=== PATIENT | female | born 1995 | race Caucasian/White ===

== ENCOUNTER 2018-11-15 05:22 | Emergency (ER) | payer MEDICAID ==
[~2018-11-15] VITALS: Ht 162.6 cm; Wt 59.0 kg
[~2018-11-15 05:22] MED LIST: FERR-15 PO; FOLI1TAB19 PO; PREN-385 PO
[2018-11-15 05:26] VITALS: BP 132/81
--- NOTE | 2018-11-15 05:26 | NUR ---
23 Y/O FEMALE PRESENTS TO ED WITH C/O BILAT LOWER ABD PAIN WITH VAGINAL BLEEDING X4 HRS. STATES ABD PAIN AND VAGINAL BLEEDING BEGAN AFTER SEXUAL INTERCOURSE WITH HER BOYFRIEND. ALSO STATES LARGE AMOUNTS OF THICK RED TISSUE IS COMING FROM VAGINA. VSS UPON ED EVALUATION. POSITIONED IN BED FOR COMFORT. X1 SIDE RAIL UP. BOYFRIEND AT BEDSIDE. ER MD AWARE. CONTINUE TO MONITOR.
--- NOTE | 2018-11-15 05:26 | NUR ---
TO BED # 07 AMBULATORY
--- NOTE | 2018-11-15 05:42 | NUR ---
Dr. Luna evaluating patient at bedside.
[2018-11-15 06:20] VITALS: BP 126/73
--- NOTE | 2018-11-15 06:20 | NUR ---
DISCHARGE PAPERS GIVEN TO PT. 07/26 PAIN BUT TOLLERABLE. DISCHARGED WITH VSS. RX OF MOTRIN GIVEN. SIDE EFFECTS EXPLAINED. INSTRUCTED TO F/U WITH PCP AND WHEN TO RETURN TO ER. PT VERBALLIZED UNDERSTANDING OF DC INSTRUCTIONS. ALL QUESTIONS ANSWERED.
== END 2018-11-15 06:20 | disposition home or self-care (01) ==
LOC: MED 05:22
DX: N93.9 Abnormal uterine and vaginal bleeding, unspecified (principal); E11.9 Type 2 diabetes mellitus without complications; Z79.899 Other long term (current) drug therapy
CPT/HCPCS: 81002; 81025; 99283

== ENCOUNTER 2022-04-10 07:31 | Inpatient (IN) | payer OTHER ==
[~2022-04-10] VITALS: Ht 162.6 cm; Wt 61.5 kg
[~2022-04-10 07:31] MED LIST changes: +CEPH-588 PO; -FERR-15 PO; -FOLI1TAB19 PO; +HUM SUBQ; -PREN-385 PO
[2022-04-10 07:42] VITALS: BP 134/90
[2022-04-10] MEDS ORDERED: NACL 0.9% 1,000 ML IV SCH (07:55)
--- NOTE | 2022-04-10 08:20 | NUR ---
Covid and flu swabs collected and walked to lab.
--- NOTE | 2022-04-10 08:45 | NUR ---
26y/o presents to ED with c/o SOB, N/V today. Pt reports dizziness "like I'm swaying side to side," weakness since this morning, intermittent nausea, one episode of vomiting upon arrival. Pt presents tachypneic with use of accessory muscles,respirations in triage 28, unsteady gait, assisted with ambulation, HR in triage 139. Pt denies pain, fevers, chills, diarrhea at this time. Pt placed in gown, on bedside monitor, bed placed in lowest position, side rails x2.
--- NOTE | 2022-04-10 09:35 | NUR ---
Dr. Garnica at bedside for ultrasound guided IV.
--- NOTE | 2022-04-10 10:15 | NUR ---
Ambulated pt with assistance to restroom.
[2022-04-10 11:02] LABS: BASOPHILS # (AUTO) 0.1 K/uL (0.00-0.22); BASOPHILS % (AUTO) 0.6 % (0.0-2.0); EOSINOPHILS % (AUTO) 0.1 % (0.0-4.0); HEMATOCRIT 43.6 % (36-48); HEMOGLOBIN 14.1 g/dL (12.0-16.0); LYMPHOCYTES # (AUTO) 1.3 K/uL (2.5-16.5); LYMPHOCYTES % (AUTO) 5.1 % (20.5-51.1); MEAN CORPUSCULAR HEMOGLOBIN 28 pg (27-31); MEAN CORPUSCULAR HGB CONC 32 g/dL (33-37); MEAN CORPUSCULAR VOLUME 86.1 fL (80-94); MONOCYTES # (AUTO) 0.8 K/uL (0.8-1.0); MONOCYTES % (AUTO) 3.4 % (1.7-9.3); NEUTROPHILS # (AUTO) 22.5 K/uL (1.8-7.7); NEUTROPHILS % (AUTO) 90.8 % (42.2-75.2); PLATELET COUNT (AUTO) 389 K/uL (140-450); RED BLOOD CELL COUNT(AUTO) 5.06 MIL/uL (4.20-5.40); RED CELL DISTRIBUTION WIDTH 14.5 % (11.6-13.7); WHITE BLOOD COUNT (AUTO) 24.7 K/uL (4.8-10.8)
[2022-04-10] MEDS ORDERED: NACL 0.9% 1,000 ML IV ONE (11:15)
[2022-04-10 11:18] LABS: PROTHROMBIN TIME 10.4 secs (10.8-13.4)
[2022-04-10 11:27] LABS: ALBUMIN 3.1 g/dL (3.4-5.0); ANION GAP 32.9 (8-16); ASPARTATE AMINOTRANSFERASE 25 U/L (15-37); CHLORIDE 96 mmol/L (98-107); CREATININE 1.4 mg/dL (0.6-1.3); GFR ARICAN-AMERICAN 58 mL/min (>90); POTASSIUM 4.5 mmol/L (3.5-5.1); SODIUM SERUM 132 mmol/L (136-145); TOTAL BILIRUBIN 0.6 mg/dL (0.0-1.0); UREA NITROGEN, BLOOD 20 mg/dL (7-18)
--- NOTE | 2022-04-10 11:30 | NUR ---
Pt resting in bed with eyes closed, on bedside front desk monitor. All needs met at this time.
[2022-04-10 11:32] LABS: CARBON DIOXIDE 7.6 mmol/L (21-32)
[2022-04-10 11:33] LABS: GLUCOSE 489 mg/dL (74-106)
[2022-04-10] MEDS ORDERED: INSULIN REGULAR, HUMAN 100 UNIT in NACL 0.9% 100 ML IV SCH ×4 (11:40→12:50)
[2022-04-10] MEDS ORDERED: DEXTROSE 50% 50 ML SYR IVP PRN ×2 (11:40→12:50)
[2022-04-10] MEDS ORDERED: INSULIN REGULAR, HUMAN 100 UNIT/ML VIAL IV ONE (11:40)
[2022-04-10] MEDS: BLOOD GLUCOSE MONITORING 1 DEV DEV FS SCH ×13 (12:05→23:34)
[2022-04-10] MEDS ORDERED: PIPERACILLIN/TAZOBACTAM 2.25 GM in DEXTROSE 5% 50 ML IV ONE (12:10)
[2022-04-10] MEDS: VANCOMYCIN 1,000 MG in DEXTROSE 5% 250 ML IV ONE (12:10)
[2022-04-10] MEDS ORDERED: VANCOMYCIN 1,000 MG VIAL ONE (12:33)
[2022-04-10] MEDS ORDERED: PIPERACILLIN/TAZOBACTAM 2.25 GM VIAL IV ONE (12:35)
[2022-04-10 12:59] LABS: APPEARANCE,URINE CLEAR (CLEAR); BILIRUBIN,URINE NEGATIVE (NEGATIVE); BLOOD, URINE TRACE-I (NEGATIVE); COLOR,URINE YELLOW (YELLOW); LEUKOCYTE ESTERASE ,URINE NEGATIVE (NEGATIVE); NITRITE, URINE NEGATIVE (NEGATIVE); UGLUCOSE 3+ (NEGATIVE)
[2022-04-10] MEDS ORDERED: INSU100S22 SUBQ (13:03)
[2022-04-10] MEDS ORDERED: METOCLOPRAMIDE 10 MG/2 ML INJ VIAL IVP PRN (13:05)
[2022-04-10 13:16] LABS: RBC,URINE NONE SEEN /HPF (0-5)
--- NOTE | 2022-04-10 13:23 | NUR ---
Patient will be admitted to care of Dr. Banks. Admited to ICU. Will go to room ICU 1. Belongings list completed. Report to FARTUN Castañeda.
--- NOTE | 2022-04-10 13:40 | NUR ---
RECEIVED BEDSIDE REPORT FROM GADIEL TRIVEDI RN. PT FROM HOME. C/O INCREASED SOB. DX: DKA, NON-COMPLAINT DM PT. A&0 X4. ROOM AIR. ST ON MONITOR. MILD WEAKNESS, BEDREST. IV TO RT UPPER ARM 18G, SALINE LOCK. CONTINENT, BEDSIDE COMMODE IN USE. SKIN INTACT. CALL LIGHT WITHIN REACH, SEMI ALBRIGHT, BED TO LOWEST POSITION. WILL CONTINUE TO MONITOR.
[2022-04-10 14:00] VITALS: BP 141/96
[2022-04-10] MEDS: DEXT 5% / NACL 0.45% 1,000 ML IV SCH ×2 (14:00→19:11)
[2022-04-10 14:11] LABS: FREE T4 (FREE THYROXINE) 1.02 ng/dL (0.76-1.46); THYROID STIMULATING HORMONE 0.74 uIU/mL (0.34-3.74)
[2022-04-10] MEDS: NACL 0.9% 1,000 ML IV SCH ×2 (14:19→20:18)
[2022-04-10] MEDS: INSULIN REGULAR, HUMAN 100 UNIT in NACL 0.9% 100 ML IV SCH ×2 (14:22)
--- NOTE | 2022-04-10 15:17 | NUR ---
DR CLARK ROUNDING AT BEDSIDE. UPDATED PT INFORMATION. ORDERED HOLD ON VANCOMYCIN, DR WILL PUT ORDER FOR ROCEPHIN.
[2022-04-10 16:00] VITALS: BP 95/46
[2022-04-10 16:39] LABS: ANION GAP 29.1 (8-16); CREATININE 1.1 mg/dL (0.6-1.3); POTASSIUM 4.9 mmol/L (3.5-5.1)
[2022-04-10 16:41] LABS: CARBON DIOXIDE 5.8 mmol/L (21-32)
[2022-04-10 16:49] LABS: MAGNESIUM 1.9 mg/dL (1.8-2.4); PHOSPHORUS 2.7 mg/dL (2.5-4.9)
[2022-04-10] MEDS ORDERED: SODIUM BICARBONATE 8.4% PFS 50 MEQ/50 ML SYR IVP SCH (17:30)
[2022-04-10 18:00] VITALS: BP 135/81
--- NOTE | 2022-04-10 18:50 | NUR ---
PICC LINE NURSE INSERTED AT BEDSIDE, PT TOLERATE WELL.
--- NOTE | 2022-04-10 19:23 | NUR ---
ENDORSE TO QUALITY ASSURANCE REPRESENTATIVE DARLENE RN FOR CONTINUITY OF CARE.
[2022-04-10 20:00] VITALS: BP 131/72
[2022-04-10 21:01] LABS: ANION GAP 30.5 (8-16); CREATININE 1.2 mg/dL (0.6-1.3); POTASSIUM 3.2 mmol/L (3.5-5.1)
[2022-04-10 21:03] LABS: CARBON DIOXIDE 7.7 mmol/L (21-32)
[2022-04-10 21:05] LABS: MAGNESIUM 1.9 mg/dL (1.8-2.4); PHOSPHORUS 2.5 mg/dL (2.5-4.9)
[2022-04-10 22:00] VITALS: BP 115/66
[2022-04-10] MEDS ORDERED: POTASSIUM CHLORIDE 10 MEQ TABER PO SCH (23:55)
[2022-04-11] VITALS (12 sets, daily range): BP systolic 97–141; BP diastolic 50–108
[2022-04-11] MEDS ORDERED: POTASSIUM CHLORIDE 10 MEQ TABER PO ONE (00:49)
[2022-04-11 00:52] LABS: CARBON DIOXIDE 9.9 mmol/L (21-32)
[2022-04-11 00:55] LABS: POTASSIUM 2.9 mmol/L (3.5-5.1)
[2022-04-11 00:57] LABS: MAGNESIUM 1.7 mg/dL (1.8-2.4); PHOSPHORUS 1.3 mg/dL (2.5-4.9)
[2022-04-11] MEDS: DEXT 5% / NACL 0.45% 1,000 ML IV SCH ×4 (00:57→19:02)
[2022-04-11] MEDS: BLOOD GLUCOSE MONITORING 1 DEV DEV FS SCH ×24 (00:59→23:38)
--- NOTE | 2022-04-11 01:58 | NUR ---
PT ON LEVO/VASO/BRIAN 30/0.03/150, INTUBATED ON VENT AC22 500 55% +7. PT WAS TACHYCARDIC MOST OF THE NIGHT WHEN PT WENT BRADYCARDIC > IVR>ASYSTOLE. CHEM CODE ACTIVATED. 1 AMP EPI GIVEN. DAUGHTER WAS AT BEDSIDE ENDORSING TO ED MD NOT TO CONT WITH CODE. UNABLE TO OBTAIN BP READING. DR. FRIEND PRONOUNCED PT @2343 AFTER BEDSIDE 2DECHO WAS DONE TO CONFIRM NO CARDIAC ACTIVITY. DAUGHTER AT BEDSIDE SIGNED OFF PT'S BELONGINGS AND ENDORSED TO RELEASE PT'S REMAINS TO [facility]. [facility] NOTIFIED, PT NOT A CANDIDATE #[id number]. ENGINEERING AND OPERATIONS DIRECTOR'S OFFICE CALLED RE: PT'S . ANITRA MODI RELEASED PT'S REMAIN @0015 04/11. DR SINGH NOTIFIED OF PT'S @2350. [employer] AWARE @2355. [facility] CALLED @7561 ([phone]). PT'S BROTHER ALSO NOTIFIED. Addendum: 04/11/22 at 0420 by Agency 10 RN RN ERROR WROTE WRONG NOTE ON WRONG PT.
[2022-04-11] MEDS ORDERED: KCL 20 MEQ/WATER INJ PREMIX 200 ML IV SCH (02:45)
[2022-04-11] MEDS ORDERED: MAG SULF 2000 MG/WATER PREMIX 50 ML IV SCH (02:50)
[2022-04-11] MEDS ORDERED: SODIUM PHOS / POTASSIUM PHOS 1 PKT PDR PO SCH ×3 (02:50→22:00)
[2022-04-11] MEDS ORDERED: KCL 20 MEQ/WATER INJ PREMIX 200 ML IV ONE (02:53)
[2022-04-11] MEDS ORDERED: MAG SULF 2000 MG/WATER PREMIX 50 ML IV ONE (02:54)
[2022-04-11 04:30] LABS: BASOPHILS % (AUTO) 0.2 % (0.0-2.0); HEMATOCRIT 31.2 % (36-48); LYMPHOCYTES # (AUTO) 1.4 K/uL (2.5-16.5); LYMPHOCYTES % (AUTO) 8.5 % (20.5-51.1); MEAN CORPUSCULAR HEMOGLOBIN 28 pg (27-31); MEAN CORPUSCULAR HGB CONC 35 g/dL (33-37); MONOCYTES # (AUTO) 1.3 K/uL (0.8-1.0); MONOCYTES % (AUTO) 8.3 % (1.7-9.3); NEUTROPHILS # (AUTO) 13.3 K/uL (1.8-7.7); PLATELET COUNT (AUTO) 305 K/uL (140-450); RED BLOOD CELL COUNT(AUTO) 3.91 MIL/uL (4.20-5.40); RED CELL DISTRIBUTION WIDTH 14.6 % (11.6-13.7); WHITE BLOOD COUNT (AUTO) 16.1 K/uL (4.8-10.8)
[2022-04-11 04:41] LABS: ANION GAP 15.9 (8-16); CARBON DIOXIDE 10.3 mmol/L (21-32); CREATININE 0.9 mg/dL (0.6-1.3); POTASSIUM 3.2 mmol/L (3.5-5.1)
[2022-04-11 04:44] LABS: MAGNESIUM 1.6 mg/dL (1.8-2.4); PHOSPHORUS 1.2 mg/dL (2.5-4.9)
[2022-04-11] MEDS: NACL 0.9% 1,000 ML IV SCH ×4 (05:00→17:41)
[2022-04-11] MEDS ORDERED: SODIUM PHOS / POTASSIUM PHOS 1 PKT PDR ONE ×2 (05:04→22:09)
--- NOTE | 2022-04-11 07:15 | NUR ---
RECEIVED BEDSIDE REPORT FROM MORTGAGE SALES MANAGER DARLENE RN. PT A&O X4, SLEEP. LUNG CLEAR TO ALL LOBES. ROOM AIR, NO ACUTE S/S OF RESPIRATORY DISTRESS. ST ON MONITOR. CONSISTENT CARB DIET. CONTINENT. MIDLINE TO LT UPPER ARM, DOUBLE LUMEN CATHETER, RUNNING D5 1/2 AT 200MLS/HR, INSULIN DRIP AT 0.05 UNITS/KG/HR. SKIN INTACT. MILD WEAKNESS, BEDREST. CALL LIGHT WITHIN REACH, BED FLAT TO LOWEST POSITION. WILL CONTINUE TO MONITOR.
--- NOTE | 2022-04-11 07:18 | NUR ---
Pt resting quietly in bed. Neurologically unchanged. Remains on RA, 20RR 100%SpO2. ST on monitor. BP stable. PO intake tolerated. Received 1 dose of reglan IVP for nausea overnight. UOP adequate. Insulin gtt @0.05u/kg/hr. Latest FSBS 200. IVF @200ml/hr via LA DL midline, site unremarkable. Safety precautions cont.
--- NOTE | 2022-04-11 07:32 | NUR ---
REPORTED ALBUMIN AND [address] LAWRENCE. NEW ORDER RECEIVED FOR 2 GM CALCIUM GLUCONATE.
[2022-04-11] MEDS ORDERED: CALCIUM GLUC 1 GM/50 mL NS BAG 50 ML IV SCH ×2 (08:00→09:00)
[2022-04-11 08:08] LABS: T4 (THYROXINE) 7.9 ug/dL (4.5-12.0)
[2022-04-11] MEDS: PANTOPRAZOLE 40 MG INJ VIAL IVP SCH (08:24)
[2022-04-11] MEDS: ENOXAPARIN 40 MG/0.4 ML SYR SUBQ SCH (08:27)
[2022-04-11 08:35] LABS: ANION GAP 15.9 (8-16); CARBON DIOXIDE 11.3 mmol/L (21-32); CREATININE 0.8 mg/dL (0.6-1.3); POTASSIUM 4.2 mmol/L (3.5-5.1)
--- NOTE | 2022-04-11 09:01 | NUR ---
DC PLANNIN YRS OLD FEMALE PATIENT WAS ADMITTED FROM HOME WITH A DX OF DKA. PATIENT HAS A HX OF DM, COVID AND BLOOD CLOT REQUIRING BRAIN SURGERY ON 2019. AG ON ADMISSION 32.9 CXR AND RAPID COVID TEST NEGATIVE. CT CHEST NO PE. ADMITTED TO ICU FOR INSULIN DRIP, IVF AND IV ABX ROCEPHIN. CONSULTED WITH [facility]. DC PLAN TO GO HOME WHEN STABLE. CM TO FOLLOW
--- NOTE | 2022-04-11 09:10 | NUR ---
US OF GALLBLADDER DONE AT BEDSIDE.
--- NOTE | 2022-04-11 09:24 | NUR ---
REPORTED 0800 AM PHOSPHOROUS AND POTASSIUM LEVEL TO DR. LAWRENCE. NEW ORDER RECEIVED.
--- NOTE | 2022-04-11 09:59 | NUR ---
UPDATED PT INFORMATION WITH VIA THE PHONE. ALL QUESTIONS ANSWERED.
--- NOTE | 2022-04-11 10:08 | NUR ---
PATIENT HAS BEEN SCREENED AND CATEGORIZED HIGH NUTRITION RISK. PATIENT WILL BE SEEN WITHIN 1-2 DAYS OF ADMISSION. 04/10/22-04/12/22 FNS REFERRAL RECEIVED FOR VOMITING > 3 DAYS. REVIEWED BY MARQUEZ LAWRENCE RD
--- NOTE | 2022-04-11 10:44 | NUR ---
SEEN AND EXAMINED BY DR LAWRENCE. UPDATED PT INFORMATION.
--- NOTE | 2022-04-11 11:15 | NUR ---
SCARFER AT BEDSIDE, SPOKE WITH PT.
--- NOTE | 2022-04-11 11:30 | NUR ---
DC PLANNING SW MET WITH PT AT BEDSIDE TO COMPLETE ASSESSMENT. PATIENT REPORTS RESIDING AT HOME AT THE ADDRESS LISTED ON FILE WITH HER PARENTS. PATIENT IDENTIFIES KEVEN VERMA, MOM, AND GILBERT BOONE, SPOUSE, EMERGENCY CONTACT. PATIENT REPORTS MEETING WITH PCP REGULARLY, LAST VISIT; 2-3 MONTHS AGO. PATIENT REPORTS MEDICATION COMPLIANCE AND REPORTS RECENT BARRIERS IN ACQUIRING MEDICATION INSURANCE IS TRANSITIONING. SW TO PROVIDE PATIENT WITH MEDICATION RESOURCES. PATIENT REPORTS PICKING UP MEDICATION FROM [facility] ON [address] IN [place], WHEN NEEDED. PT REPORTS BEING INDEPENDENT IN ALL ACTIVITIES AND DENIES USE OF DME. PATIENT COMPLETES ALL ADL'S INDEPENDENTLY. PT DENIES MENTAL HEALTH/ SUBSTANCE USE HX. PATIENT REPORTS HX OF DIABETES WHICH SHE REPORTS IS TYPICALLY WELL MANAGED. PATIENT REPORTS NUTRITION COMPLIANCE HOWEVER, PATIENT REPORTS THAT SHE FINDS EATING DIFFICULT THERE IS NOT MANY FOODS SHE LIKES TO EAT. PATIENT REPORTS DX OF DIABETES 5 YRS AGO. PATIENT REPORTS ADEQUATE FOOD SOURCE AT HOME AND REPORTS CURRENTLY WORKING AT [employer] FULL-TIME. PT REPORTS DC PLAN IS TO RETURN HOME WITH OR MOTHER PROVIDING TRANSPORTATION WHEN MEDICALLY STABLE. SW TO PROVIDE PATIENT WITH MEDICATION ASSISTANCE RESOURCES. Addendum: 04/11/22 at 1512 by Ronnie Webber PROVIDED PT WITH MEDICATION ASSISTANCE RESOURCES, PATIENT ACCEPTED.
[2022-04-11 12:32] LABS: ANION GAP 16.6 (8-16); CREATININE 0.8 mg/dL (0.6-1.3); POTASSIUM 3.6 mmol/L (3.5-5.1)
[2022-04-11 12:35] LABS: MAGNESIUM 2.1 mg/dL (1.8-2.4)
[2022-04-11] MEDS: INSULIN REGULAR, HUMAN 100 UNIT in NACL 0.9% 100 ML IV SCH ×2 (12:39)
[2022-04-11 12:41] LABS: PHOSPHORUS 1.1 mg/dL (2.5-4.9)
--- NOTE | 2022-04-11 12:50 | NUR ---
Reported venous blood gas and 1200pm chemistry labs to Dr. De La Curz. Per Dr. De La Cruz, continue DKA protocol.
--- NOTE | 2022-04-11 13:05 | NUR ---
SEEN AND EXAMINED BY DR. MUNSON. NEW ORDERS RECEIVED.
--- NOTE | 2022-04-11 13:22 | NUR ---
04/11/22 RD INITIAL ASSESSMENT COMPLETED PLEASE REFER TO NUTRITION ASSESSMENT UNDER CARE ACTIVITY FOR ESTIMATED NUTRITIONAL NEEDS. 1. CONTINUE CCHO60 DIET TOLERATED 2. OFFERED DIABETES EDUCATION AND ORAL SUPPLEMENT FOR NUTRITION SUPPORT BUT PATIENT DECLINED. 3. RD TO FOLLOW-UP 7 DAYS, LOW RISK REVIEWED BY MARQUEZ LAWRENCE RD
[2022-04-11] MEDS ORDERED: POTASSIUM PHOSPHATE 30 MM in NACL 0.9% 250 ML IV SCH (14:00)
[2022-04-11] MEDS: SODIUM BICARBONATE 650 MG TAB PO SCH ×2 (14:06→17:14)
--- NOTE | 2022-04-11 14:08 | NUR ---
DR CLARK ROUNDING AT BEDSIDE. UPDATED PT INFORMATION.
[2022-04-11 16:36] LABS: MAGNESIUM 1.9 mg/dL (1.8-2.4); PHOSPHORUS 1.3 mg/dL (2.5-4.9)
--- NOTE | 2022-04-11 16:46 | NUR ---
Urine collected and walked to lab.
[2022-04-11 16:49] LABS: ANION GAP 14.2 (8-16); CARBON DIOXIDE 12.8 mmol/L (21-32); CREATININE 0.7 mg/dL (0.6-1.3)
[2022-04-11 17:38] LABS: APPEARANCE,URINE CLEAR (CLEAR); BILIRUBIN,URINE NEGATIVE (NEGATIVE); BLOOD, URINE NEGATIVE (NEGATIVE); COLOR,URINE YELLOW (YELLOW); LEUKOCYTE ESTERASE ,URINE 1+ (NEGATIVE); NITRITE, URINE NEGATIVE (NEGATIVE); UGLUCOSE 3+ (NEGATIVE)
[2022-04-11 17:52] LABS: RBC,URINE 0-5 /HPF (0-5); WBC,URINE 0-5 /HPF (0-5)
[2022-04-11 17:53] LABS: OTHER CASTS, URINE None Seen /LPF (None Seen)
[2022-04-11 18:45] LABS: URINE TOTAL PROTEIN 56.9 mg/dL (0-12)
--- NOTE | 2022-04-11 19:25 | NUR ---
ENDORSED TO SENIOR SALES ASSOCIATE FLORESITA RN FOR CONTINUITY OF CARE.
[2022-04-11 20:40] LABS: ANION GAP 16.6 (8-16); CARBON DIOXIDE 15.3 mmol/L (21-32); CREATININE 0.7 mg/dL (0.6-1.3)
[2022-04-11 20:42] LABS: POTASSIUM 2.9 mmol/L (3.5-5.1)
[2022-04-11 20:45] LABS: MAGNESIUM 1.9 mg/dL (1.8-2.4); PHOSPHORUS 1.9 mg/dL (2.5-4.9)
[2022-04-11] MEDS ORDERED: POTASSIUM CHLORIDE 10 MEQ TABER PO SCH (22:00)
[2022-04-11] MEDS ORDERED: KCL 20 MEQ/WATER INJ PREMIX 300 ML IV ONE (22:07)
[2022-04-11] MEDS ORDERED: KCL 20 MEQ/WATER INJ PREMIX 100 ML IV SCH (22:30)
[2022-04-12] VITALS (12 sets, daily range): BP systolic 88–129; BP diastolic 55–72
[2022-04-12] MEDS ORDERED: KCL 20 MEQ/WATER INJ PREMIX 200 ML IV SCH (00:30)
[2022-04-12] MEDS: BLOOD GLUCOSE MONITORING 1 DEV DEV FS SCH ×19 (00:50→20:00)
[2022-04-12 06:05] LABS: MAGNESIUM 1.8 mg/dL (1.8-2.4)
[2022-04-12 06:44] LABS: ANION GAP 14.5 (8-16); CARBON DIOXIDE 17.5 mmol/L (21-32); CREATININE 0.5 mg/dL (0.6-1.3)
[2022-04-12] MEDS: DEXT 5% / NACL 0.45% 1,000 ML IV SCH (07:01)
[2022-04-12] MEDS: NACL 0.9% 1,000 ML IV SCH ×2 (07:01→20:21)
[2022-04-12] MEDS: PANTOPRAZOLE 40 MG INJ VIAL IVP SCH (08:55)
[2022-04-12] MEDS: SODIUM BICARBONATE 650 MG TAB PO SCH ×3 (08:55→18:22)
[2022-04-12] MEDS: ENOXAPARIN 40 MG/0.4 ML SYR SUBQ SCH (09:06)
[2022-04-12 11:33] LABS: BASOPHILS # (AUTO) 0.1 K/uL (0.00-0.22); BASOPHILS % (AUTO) 0.6 % (0.0-2.0); EOSINOPHILS # (AUTO) 0.1 K/uL (0-0.4); EOSINOPHILS % (AUTO) 0.7 % (0.0-4.0); HEMATOCRIT 31.2 % (36-48); HEMOGLOBIN 11.1 g/dL (12.0-16.0); LYMPHOCYTES # (AUTO) 1.7 K/uL (2.5-16.5); LYMPHOCYTES % (AUTO) 19.2 % (20.5-51.1); MEAN CORPUSCULAR HEMOGLOBIN 29 pg (27-31); MEAN CORPUSCULAR HGB CONC 36 g/dL (33-37); MEAN CORPUSCULAR VOLUME 79.9 fL (80-94); MONOCYTES % (AUTO) 11.4 % (1.7-9.3); NEUTROPHILS % (AUTO) 68.1 % (42.2-75.2); PLATELET COUNT (AUTO) 299 K/uL (140-450); RED BLOOD CELL COUNT(AUTO) 3.91 MIL/uL (4.20-5.40); RED CELL DISTRIBUTION WIDTH 14.7 % (11.6-13.7); WHITE BLOOD COUNT (AUTO) 8.8 K/uL (4.8-10.8)
[2022-04-12 11:45] LABS: ANION GAP 12.6 (8-16); CARBON DIOXIDE 20.9 mmol/L (21-32); CREATININE 0.5 mg/dL (0.6-1.3); POTASSIUM 3.5 mmol/L (3.5-5.1)
[2022-04-12] MEDS: SODIUM PHOS / POTASSIUM PHOS 1 PKT PDR PO SCH ×2 (13:04→21:58)
[2022-04-12] MEDS: INSULIN LANTUS 100 UNITS/ML 10 ML VIAL SUBQ SCH (13:20)
[2022-04-12 16:11] LABS: ANION GAP 11.5 (8-16); CARBON DIOXIDE 22.9 mmol/L (21-32); CREATININE 0.5 mg/dL (0.6-1.3); POTASSIUM 3.4 mmol/L (3.5-5.1)
[2022-04-12] MEDS: INSULIN LISPRO 100 UNITS/ML VIAL SUBQ SCH (18:30)
--- NOTE | 2022-04-12 19:32 | NUR ---
1900: REC'D PT FROM RN KATHY TO ASSUME PLAN OF CARE. PT'S A/OX4, DENIES PAIN, ON ROOM AIR SATS 100%. STABLE VITAL SIGNS. USING BEDSIDE COMMODE TO VOIDS. HAS MIDLINE ON THE SHOBHA, SL, PATENT AND INTACT. SAFETY AND SKIN PROTOCOL ON PROGRESS. CONTINUE MONITOR. 1929: ACCU CHECK Q4 HRS NEW ORDER
[2022-04-12] MEDS ORDERED: diphenhydrAMINE 50 MG/ML VIAL IVP PRN (19:35)
[2022-04-12 21:11] LABS: ANION GAP 12.5 (8-16); CARBON DIOXIDE 23.5 mmol/L (21-32); CREATININE 0.7 mg/dL (0.6-1.3)
[2022-04-13] VITALS (11 sets, daily range): BP systolic 102–116; BP diastolic 63–80
[2022-04-13 00:25] LABS: ANION GAP 11.2 (8-16); CARBON DIOXIDE 24.3 mmol/L (21-32); CREATININE 0.5 mg/dL (0.6-1.3); POTASSIUM 3.5 mmol/L (3.5-5.1)
[2022-04-13] MEDS: INSULIN LISPRO SLIDING SCALE 100 UNITS/ML VIAL SUBQ PRN ×2 (01:14→04:00)
[2022-04-13] MEDS: BLOOD GLUCOSE MONITORING 1 DEV DEV FS SCH ×6 (04:07→20:22)
[2022-04-13 04:58] LABS: ANION GAP 12.3 (8-16); CARBON DIOXIDE 25.5 mmol/L (21-32); CREATININE 0.6 mg/dL (0.6-1.3); POTASSIUM 3.8 mmol/L (3.5-5.1)
--- NOTE | 2022-04-13 06:27 | NUR ---
NO SIGNIFICANT CHANGES FROM PREVIOUS SHIFT ASSESSMENT. Q4H ACCU CHECKED. A/OX4, DENIES PAIN, AMBULATORY WITH STEADY GAIT. STABLE VITAL SIGNS. WILL ENDORSE TO AM RN TO ASSUME PLAN OF CARE. PT CAN BE TRANSFER TO M/S/TELE.
--- NOTE | 2022-04-13 07:14 | NUR ---
ENDORSED PT TO RN LIZ TO ASSUME PLAN OF CARE.
[2022-04-13] MEDS: PANTOPRAZOLE 40 MG INJ VIAL IVP SCH (08:13)
[2022-04-13] MEDS: SODIUM PHOS / POTASSIUM PHOS 1 PKT PDR PO SCH ×2 (08:13→20:23)
[2022-04-13] MEDS: SODIUM BICARBONATE 650 MG TAB PO SCH ×3 (08:14→17:53)
[2022-04-13] MEDS: INSULIN LISPRO 100 UNITS/ML VIAL SUBQ SCH ×3 (08:19→18:04)
[2022-04-13] MEDS: ENOXAPARIN 40 MG/0.4 ML SYR SUBQ SCH (08:19)
[2022-04-13] MEDS: INSULIN LANTUS 100 UNITS/ML 10 ML VIAL SUBQ SCH (08:20)
[2022-04-13 09:11] LABS: ANION GAP 12.7 (8-16); CARBON DIOXIDE 24.6 mmol/L (21-32); CREATININE 0.5 mg/dL (0.6-1.3); POTASSIUM 4.3 mmol/L (3.5-5.1)
[2022-04-13 09:16] LABS: HEMATOCRIT 32.5 % (36-48); HEMOGLOBIN 11.3 g/dL (12.0-16.0); MEAN CORPUSCULAR HEMOGLOBIN 28 pg (27-31); MEAN CORPUSCULAR HGB CONC 35 g/dL (33-37); MEAN CORPUSCULAR VOLUME 80.2 fL (80-94); PLATELET COUNT (AUTO) 335 K/uL (140-450); RED BLOOD CELL COUNT(AUTO) 4.06 MIL/uL (4.20-5.40); RED CELL DISTRIBUTION WIDTH 14.7 % (11.6-13.7); WHITE BLOOD COUNT (AUTO) 6.5 K/uL (4.8-10.8)
[2022-04-13] MEDS: NACL 0.9% 1,000 ML IV SCH ×2 (09:41→11:56)
[2022-04-13 10:36] LABS: EOSINOPHILS % (MANUAL) 1 % (0-4); LYMPHOCYTES % (MANUAL) 19 % (20-46); MONOCYTES % (MANUAL) 8 % (5-12)
[2022-04-13 10:37] LABS: METAMYELOCYTES % 2 % (0-0); MYELOCYTES % 2 % (0-0)
[2022-04-13] MEDS ORDERED: ONDA-188 SL (14:21)
[2022-04-13] MEDS ORDERED: INSU100S22 SUBQ (14:21)
[2022-04-13] MEDS ORDERED: HUM SUBQ (14:21)
--- NOTE | 2022-04-13 14:45 | NUR ---
DR. CLARK CAME & NOTED PATIENT STABLE VITAL SIGNS, BLOOD SUGAR, AND PATIENT WANTS TO GO HOME. ORDERED FOR DISCHARGE
[2022-04-13] MEDS ORDERED: VANCOMYCIN PER PHARMACY MC PRN (14:55)
--- NOTE | 2022-04-13 15:15 | NUR ---
BLOOD CULTURE, DISCONTINUED DISCHARGE LABORATORY CALLED UP & REPORT BLOOD CULTURE REPORT GRAM POSITIVE IN [place]. INFORMED DR. CLARK & ORDERED TO DISCONTINUE DISCHARGE AND TRANSFER TO [facility], AND TO START ON VANCOMYCIN PER PHARMACY & TO REPEAT BLOOD CULTURE.
[2022-04-13] MEDS: VANCOMYCIN 750 MG in DEXTROSE 5% 250 ML IV SCH (16:20)
--- NOTE | 2022-04-13 19:52 | NUR ---
1900: REC'D PT JAM RN LIZ TO ASSUME PLAN OF CARE. A/OX4, DENIES PAIN, BRP, STEADY GAIT. POC DISCUSSED.STABLE VITAL SIGNS. 2000: SHIFT ASSESSMENT DONE CONTINUE MONITOR.
[2022-04-14] VITALS: BP 104/64
[2022-04-14] MEDS: VANCOMYCIN 750 MG in DEXTROSE 5% 250 ML IV SCH ×2 (00:21→07:33)
[2022-04-14 04:00] VITALS: BP 99/64
--- NOTE | 2022-04-14 05:29 | NUR ---
PT'S STABLE, DENIES PAIN. BRP TO BSC TO VOIDS. CONTINUE MONITOR.
--- NOTE | 2022-04-14 06:55 | NUR ---
NO SIGNIFICANT CHANGES FROM PREVIOUS SHIFT ASSESSMENT. STABLE. NO C/O PAIN. WILL TRANSFER TO TELE. ENDORSED PT TO AM RN TO ASSUME PLAN OF CARE.
--- NOTE | 2022-04-14 07:15 | NUR ---
RECEIVED BEDSIDE REPORT FROM REBECA, IT ARCHITECTURE CONSULTANT, FOR CONTINUITY OF CARE. PT A/OX4, ABLE TO MAKE NEEDS KNOWN. O2 SATURATION 100% ON ROOM AIR. SR ON MONITOR. MIDLINE TO SHOBHA INFUSING NS AT 75 ML/HR. CONTINENT OF BOWEL AND BLADDER, USES BEDSIDE COMMODE. STRENGTH WNL. STANDARD PRECAUTION. CALL LIGHT WITHIN REACH, BED LOCKED AND IN LOWEST POSITION.
[2022-04-14] MEDS: BLOOD GLUCOSE MONITORING 1 DEV DEV FS SCH ×2 (07:30→11:37)
[2022-04-14 08:00] VITALS: BP 117/72
[2022-04-14] MEDS: PANTOPRAZOLE 40 MG INJ VIAL IVP SCH (08:13)
[2022-04-14] MEDS: SODIUM BICARBONATE 650 MG TAB PO SCH ×2 (08:13→12:09)
[2022-04-14] MEDS: SODIUM PHOS / POTASSIUM PHOS 1 PKT PDR PO SCH (08:13)
[2022-04-14] MEDS: ENOXAPARIN 40 MG/0.4 ML SYR SUBQ SCH (08:14)
[2022-04-14] MEDS: INSULIN LISPRO 100 UNITS/ML VIAL SUBQ SCH ×2 (08:16→12:11)
[2022-04-14] MEDS: INSULIN LANTUS 100 UNITS/ML 10 ML VIAL SUBQ SCH (08:18)
--- NOTE | 2022-04-14 10:50 | NUR ---
PT TRANSFERRED VIA WHEELCHAIR TO ROOM 105B WITH ALL BELONGINGS.
[2022-04-14 12:00] VITALS: BP 115/81
[2022-04-14 12:09] LABS: HEMOGLOBIN 11.5 g/dL (12.0-16.0); MEAN CORPUSCULAR HEMOGLOBIN 29 pg (27-31); MEAN CORPUSCULAR HGB CONC 36 g/dL (33-37); MEAN CORPUSCULAR VOLUME 80.1 fL (80-94); PLATELET COUNT (AUTO) 432 K/uL (140-450); RED BLOOD CELL COUNT(AUTO) 3.99 MIL/uL (4.20-5.40); RED CELL DISTRIBUTION WIDTH 14.6 % (11.6-13.7)
[2022-04-14] MEDS: NACL 0.9% 1,000 ML IV SCH (12:21)
[2022-04-14 12:36] LABS: LYMPHOCYTES % (MANUAL) 25 % (20-46); MONOCYTES % (MANUAL) 13 % (5-12)
[2022-04-14 12:40] VITALS: BP 115/81
--- NOTE | 2022-04-14 14:00 | NUR ---
PT DISCHARGED. ALL PAPERWORK SIGNED. TRANSPORTED TO PERSONAL VEHICLE VIA WHEELCHAIR.
== END 2022-04-14 14:05 | disposition home or self-care (01) | DRG 420 ==
LOC: MED 07:31 → MIC 13:00 → MTU 04-14 10:05
PROVIDERS: ADMIT Internal Medicine; ATTEND Internal Medicine
PROC: 05HY33Z Insertion of Infusion Device into Upper Vein, Percutaneous Approach (ICD-10-PCS; principal; 2022-04-10)
PROC: B54NZZA Ultrasonography of Left Upper Extremity Veins, Guidance (ICD-10-PCS; 2022-04-10)
DX: E10.10 Type 1 diabetes mellitus with ketoacidosis without coma (principal); N17.0 Acute kidney failure with tubular necrosis; E44.1 Mild protein-calorie malnutrition; K52.9 Noninfective gastroenteritis and colitis, unspecified; Z20.822 Contact with and (suspected) exposure to COVID-19; F41.9 Anxiety disorder, unspecified; E87.6 Hypokalemia; E83.39 Other disorders of phosphorus metabolism; D72.829 Elevated white blood cell count, unspecified; Z86.73 Personal history of transient ischemic attack (TIA), and cerebral infarction without residual deficits; Z79.4 Long term (current) use of insulin; Z83.3 Family history of diabetes mellitus; Z68.23 Body mass index [BMI] 23.0-23.9, adult
CPT/HCPCS: 36415; 36600; 71045; 71275; 76705; 80048; 80053; 81001; 82009; 82550; 82553; 82570; 82803; 82947; 82948; 83036; 83605; 83735; 83930; 84100; 84436; 84439; 84443; 84479; 84484; 85025; 85384; 85610; 85730; 87040; 87081; 87086; 93005; 96361; 96365; 99291; C9113; J0610; J0696; J1650; J1815; J2543; J2765; J3370; J3475; J3480; J7030; J7060; Q0092; Q9967

== ENCOUNTER 2022-08-29 11:58 | Emergency (ER) | payer MEDICAID, OTHER ==
[~2022-08-29] VITALS: Ht 162.6 cm; Wt 63.5 kg
[~2022-08-29 11:58] MED LIST changes: -CEPH-588 PO; +INSU100S22 SUBQ; +ONDA-188 SL
[2022-08-29 12:25] VITALS: BP 111/59
[2022-08-29] MEDS ORDERED: IBUPROFEN 800 MG TAB PO ONE (12:55)
--- NOTE | 2022-08-29 13:00 | NUR ---
C/O 9/10 KNEE PAIN S/P FALL X YESTERDAY. DENIES LOC.
[2022-08-29 14:00] VITALS: BP 111/59
--- NOTE | 2022-08-29 14:00 | NUR ---
Patient discharged with v/s stable. Written and verbal after care instructions given and explained. Patient verbalized understanding. Ambulatory with CR[facility]CHES. All questions addressed prior to discharge. Advised to follow up with PMD.
== END 2022-08-29 14:00 | disposition home or self-care (01) ==
LOC: MED 11:58
DX: S83.92XA Sprain of unspecified site of left knee, initial encounter (principal); E11.9 Type 2 diabetes mellitus without complications; Z86.73 Personal history of transient ischemic attack (TIA), and cerebral infarction without residual deficits; Z79.899 Other long term (current) drug therapy; Z79.4 Long term (current) use of insulin; W01.198A Fall on same level from slipping, tripping and stumbling with subsequent striking against other object, initial encounter; Y92.89 Other specified places as the place of occurrence of the external cause; Y93.89 Activity, other specified; Y99.8 Other external cause status
CPT/HCPCS: 73562; 99283